=== PATIENT | female | born 1940 | race Caucasian/White ===

== ENCOUNTER 2017-05-06 08:05 | Inpatient (IN) | payer MEDICARE ==
[~2017-05-06] VITALS: Ht 160 cm; Wt 75.9 kg
[2017-05-06] VITALS (7 sets, daily range): BP systolic 125–182; BP diastolic 64–100
--- NOTE | ~2017-05-06 | CON ---
[place], [place] REPORT OF CONSULTATION [id number] UN[facility] #: [id number] ROOM: 406 DOCTOR: JOAQUIN SOTO MD BIRTHDATE: [birth year] DOS: 05/07/2017 REASON FOR CONSULTATION: Chest discomfort. HISTORY OF PRESENT ILLNESS: The patient is a 76-year-old woman who has risk factors of cigarette abuse and a family history of coronary artery disease in two siblings and her father. She has no personal history of coronary artery disease. She was well until 05/06/2017. She awakened with a feeling of pressure in her chest and a feeling of lightheadedness like she could pass out. This started at about 3:30 in the morning. She sat up, but felt weak and therefore laid back down and fell asleep. When she awakened, the symptoms were still there. She also noticed sweating and some palpitations. She called her niece who summoned emergency medical services. When they arrived, her vital signs were stable. She was transferred to the Emergency Room where she was admitted for further assessment. The patient complained of having headaches for the last 4 days. She has risk factors of hypertension, hyperlipidemia and cigarette abuse in addition to her family. PAST MEDICAL HISTORY: Includes: 1. Cigarette abuse with obstructive lung disease. 2. Hyperlipidemia. 3. Hyperthyroidism, status post radioactive iodine thyroid ablation. 4. Iatrogenic hypothyroidism, on thyroid replacement. 5. Hypertension. 6. Status post hysterectomy, left breast biopsy and left lower leg open reduction and internal fixation for leg fracture. MEDICATIONS: Prior to admission, alprazolam 0.25 mg at bedtime, amlodipine 10 mg daily, aspirin 81 mg daily, biotin 1000 mcg daily, cinnamon 500 mg daily, enalapril 20 mg daily, garlic 300 mg daily, hydrochlorothiazide 12.5 mg every other day, levothyroxine 75 mcg daily, Belviq 10 mg b.i.d., metoprolol 25 mg at bedtime, metoprolol succinate 25 mg at bedtime, omeprazole 20 mg daily with omega 3 fatty acid 500 mg daily, simvastatin 20 mg at bedtime, vitamin B complex daily and an [id number] biological Tumersaid 1 daily. ALLERGIES: The patient lists allergies to PUMPKIN, SULFAMETHOXAZOLE and TRIMETHOPRIM. FAMILY HISTORY: The patient's mother had a pacemaker inserted the patient's father and two brothers had coronary artery disease. REVIEW OF SYSTEMS: The patient denies diplopia or loss of vision. She denies lightheadedness or syncope. She denies fevers, chills, sweats or recent weight change. Denies orthopnea or PND. She denies cough. She does have dyspnea with exertion, but continues to dance and be active. She denies nausea or vomiting. She denies hemoptysis or hematemesis. She denies change in bowel or bladder habits. She denies blood from her stools or urine. She denies any ankle swelling. She does have pain in her left ankle from her previous surgery. She [place], [place] REPORT OF CONSULTATION NAME: LUTHER LOZOYA UNIT #: [id number] ROOM: [facility] DOCTOR: JOAQUIN SOTO MD BIRTHDATE: [birth year] denies any peripheral edema. She denies any polydipsia or polyuria. Denies heat or cold intolerance. The remainder of the review of systems is negative except as noted above. SOCIAL HISTORY: The patient is . She smokes about 1/4 of pack of cigarettes a day. She does not consume excessive amounts of alcohol. PHYSICAL EXAMINATION: GENERAL: The patient is a slender white female who is awake, alert, oriented. VITAL SIGNS: Pulse is 56 and regular, blood pressure is 148/86. She weighs 75.8 kg and has a body mass index 29.6. HEENT: Normocephalic, atraumatic. Extraocular muscles are intact. Sclerae are clear. Pupils are round and reactive to light. The oral mucosa is moist. Tongue is midline. NECK: Supple. She has no jugular distention. Carotids are full. I heard no bruits. She had no neck or supraclavicular masses. No thyromegaly. LUNGS: Respirations are unlabored. Her chest was clear to auscultation and percussion. She had no presacral edema or chest wall tenderness. She had no epigastric tenderness. I could not reproduce her pain by palpation of her chest or abdomen. HEART: Regular rhythm with a soft S4 gallop, but no S3 or murmur. The PMI is not displaced. There is no precordial heave, lift or thrill. ABDOMEN: Soft and normoactive without masses, organomegaly or bruits. EXTREMITIES: No clubbing, cyanosis or edema. Peripheral pulses are easily palpated bilaterally. LABORATORY DATA: I reviewed her electrocardiogram, which showed sinus rhythm with probable left ventricular hypertrophy and an occasional PVC, but no acute changes. IMPRESSION: 1. Atypical chest discomfort. Thus far, the patient shows no signs of myocardial injury. 2. History of hypertension. 3. Long-term and ongoing cigarette abuse. 4. Hyperlipidemia. 5. Iatrogenic hypothyroidism, on replacement. PLAN: The patient's symptoms are very atypical, but may be related to coronary artery disease. In order to evaluate her further, we will proceed with a pharmacologic stress test. Further recommendations depend upon the results of the test. In the meantime, she should continue risk factor modification certainly should stop smoking. [facility] [place] [facility] and I thank the hospitalist group for asking our advice regarding her care. [place], [place] REPORT OF CONSULTATION NAME: LUTHER LOZOYA UNIT #: [id number] ROOM: 406 DOCTOR: JOAQUIN SOTO MD BIRTHDATE: [birth year] JOAQUIN SOTO MD CM:CONSTR:REPORT OF CONSULTATION 1015 05/07/17 1149 interface
[~2017-05-06 08:05] MED LIST: ANAPROX DS550 MG PO; ASPIRIN81 M1 PO; CINNAMON500 MG PO; CLARITIN10 MG PO; COCONUT OIL 1 ML1 ML PO; CORAL CALCIUM185 MG PO; ELON MATRIX PO; FISH OIL500 MG PO; GARLIC300 MG PO; HYDR12.5C PO; LEVOFLOXACIN500 MG PO; LOTREL 10 MG-201 CAP PO; NORCO 5-325 TA1 EACH PO; PRILOSEC20 MG PO; PRIMROSE OIL1 SGL PO; PROVENTIL0.09 MG/AC IH; ROBITUSSIN AC 110 ML PO; SIMVASTATIN20 MG PO; SYNTHROID0.075 MG PO; TOPROL XL25 MG PO; VITAMIN B COMPL1 CAP PO; VITAMIN C100 M1 PO; XANAX0.25 MG PO; ZITHROMAX Z PA250 MG PO; ZOFRAN4 MG PO
[2017-05-06 08:23] LABS: BASO % 0.5 % (0.0-1.0); EOS # 0.1 10*3/uL (0.0-0.4); HEMOGLOBIN 13.7 g/dl (12.0-16.0); LYMPH # 1.3 10*3/uL (1.3-4.4); LYMPH % 29.5 % (27.0-41.0); MEAN CELL VOLUME 89.7 fl (81.0-99.0); MEAN CORPUSCULAR HGB CONC 33.4 g/dl (33.0-37.0); MEAN PLATELET VOLUME 10.4 fl (9.6-12.3); MONO # 0.3 10*3/uL (0.1-1.0); MONO % 7.5 % (3.0-9.0); NEUT # 2.7 10*3/uL (2.3-7.9); NEUT % 60.3 % (47.0-73.0); PLATELET COUNT AUTOMATED 183 10*3/uL (130-400); RED BLOOD COUNT 4.57 10*6/uL (4.10-5.10); RED CELL DISTRI WIDTH 14.3 % (0-14.5); WHITE BLOOD COUNT 4.4 10*3/uL (4.8-10.8)
[2017-05-06 08:33] LABS: PROTHROMBIN TIME 10.3 SECONDS (9.0-12.4)
[2017-05-06 08:39] LABS: ALBUMIN 3.8 gm/dl (3.1-4.5); ALKALINE PHOSPHATASE 81 U/L (45-117); BILIRUBIN, TOTAL 0.5 mg/dl (0.2-1.0); BUN 20 mg/dl (7-24); C-REACTIVE PROTEIN < 0.29 MG/DL (0-0.3); CARBON DIOXIDE 28 mmol/L (21-32); CHLORIDE 108 mmol/L (98-107); CKMB 0.9 ng/ml (0.5-3.6); CPK 66 U/L (26-192); EST GLOM FILT AFRICAN AMERICAN > 60 ml/min; GLUCOSE 100 mg/dL (65-99); MAGNESIUM 2.3 mg/dL (1.5-2.1); POTASSIUM 3.4 mmol/L (3.5-5.1); SGOT/AST 16 IU/L (3-35); SGPT/ALT 18 U/L (12-78); SODIUM 142 mmol/L (136-145); TOTAL PROTEIN 7.7 gm/dL (6.4-8.2); TROPONIN I < 0.015 ng/ml (<0.045)
[2017-05-06] MEDS ORDERED: NATURE'S BLE1000 MCG PO (10:06)
[2017-05-06] MEDS ORDERED: BELVIQ10 M1 PO (10:07)
[2017-05-06] MEDS ORDERED: NORVASC10 MG PO (10:08)
[2017-05-06] MEDS ORDERED: ENALAPRIL20 MG PO (10:10)
[2017-05-06] MEDS ORDERED: TUMERSAID TABL1 EACH PO (10:11)
[2017-05-07] VITALS: BP 142/84
[2017-05-07 07:03] LABS: BASO % 0.4 % (0.0-1.0); EOS # 0.1 10*3/uL (0.0-0.4); EOS % 2.7 % (1.0-4.0); HEMOGLOBIN 12.2 g/dl (12.0-16.0); LYMPH # 1.5 10*3/uL (1.3-4.4); LYMPH % 31.7 % (27.0-41.0); MEAN CELL VOLUME 90.9 fl (81.0-99.0); MEAN PLATELET VOLUME 9.5 fl (9.6-12.3); MONO # 0.4 10*3/uL (0.1-1.0); NEUT # 2.7 10*3/uL (2.3-7.9); PLATELET COUNT AUTOMATED 169 10*3/uL (130-400); RED BLOOD COUNT 4.07 10*6/uL (4.10-5.10); RED CELL DISTRI WIDTH 14.3 % (0-14.5); WHITE BLOOD COUNT 4.8 10*3/uL (4.8-10.8)
[2017-05-07 07:29] LABS: ALBUMIN 3.4 gm/dl (3.1-4.5); BILIRUBIN, TOTAL 0.4 mg/dl (0.2-1.0); BUN 13 mg/dl (7-24); CARBON DIOXIDE 25 mmol/L (21-32); CHLORIDE 107 mmol/L (98-107); CHOLESTEROL 133 mg/dL (<200); EST GLOM FILT AFRICAN AMERICAN > 60 ml/min; GLUCOSE 92 mg/dL (65-99); POTASSIUM 3.3 mmol/L (3.5-5.1); SGOT/AST 15 IU/L (3-35); SGPT/ALT 17 U/L (12-78); SODIUM 142 mmol/L (136-145); TOTAL PROTEIN 6.9 gm/dL (6.4-8.2); TRIGLYCERIDES 132 mg/dl (<150); VLDL CHOLESTEROL 26 mg/dL (6-40)
[2017-05-07 07:38] LABS: ALKALINE PHOSPHATASE 73 U/L (45-117); HDL CHOLESTEROL 43 mg/dl (40-60); LDL CHOLESTEROL 64 mg/dL (9-159)
[2017-05-07 07:42] LABS: HEMOGLOBIN A1c 5.3 % (4.8-5.6)
[2017-05-07 08:00] VITALS: BP 148/86
[2017-05-07 08:07] LABS: FOLIC ACID 20.98 ng/mL (>5.38); VITAMIN D, 25-HYDROXY 34.4 ng/mL (30-100)
[2017-05-07 12:00] VITALS: BP 173/93
== END 2017-05-07 15:55 | disposition home or self-care (01) | DRG 205 ==
LOC: ED 08:05 → 4E 09:20 → EDHOLD 09:20 → 4E 09:30
PROVIDERS: Emergency Medicine; Family Medicine Adult Medicine
PROC: 3E073KZ Introduction of Other Diagnostic Substance into Coronary Artery, Percutaneous Approach (ICD-10-PCS; principal; 2017-05-07)
PROC: 4A02XM4 Measurement of Cardiac Total Activity, External Approach (ICD-10-PCS; principal; 2017-05-07)
DX: M94.0 Chondrocostal junction syndrome [Tietze] (principal); J18.9 Pneumonia, unspecified organism; K21.9 Gastro-esophageal reflux disease without esophagitis; E78.00 Pure hypercholesterolemia, unspecified; I10 Essential (primary) hypertension; F41.9 Anxiety disorder, unspecified; R42 Dizziness and giddiness; E78.5 Hyperlipidemia, unspecified; J44.9 Chronic obstructive pulmonary disease, unspecified; E89.0 Postprocedural hypothyroidism; F17.210 Nicotine dependence, cigarettes, uncomplicated; Z86.73 Personal history of transient ischemic attack (TIA), and cerebral infarction without residual deficits; Z90.710 Acquired absence of both cervix and uterus; Z88.2 Allergy status to sulfonamides; Z88.1 Allergy status to other antibiotic agents; Z91.018 Allergy to other foods; Z82.49 Family history of ischemic heart disease and other diseases of the circulatory system; Z79.82 Long term (current) use of aspirin; Z79.899 Other long term (current) drug therapy

== ENCOUNTER 2021-10-12 09:13 | Emergency (ER) | payer MEDICARE ==
[~2021-10-12] VITALS: Wt 76.7 kg
[~2021-10-12 09:13] MED LIST changes: +BELVIQ10 M1 PO; +ENALAPRIL20 MG PO; +NATURE'S BLE1000 MCG PO; +NORVASC10 MG PO; +TUMERSAID TABL1 EACH PO
[2021-10-12 09:46] LABS: BASO % 0.5 % (0.0-1.0); EOS # 0.2 10*3/uL (0.0-0.4); EOS % 2.9 % (1.0-4.0); HEMATOCRIT 39.1 % (37.0-47.0); LYMPH # 1.2 10*3/uL (1.3-4.4); LYMPH % 21.6 % (27.0-41.0); MEAN CELL VOLUME 93.3 fl (81.0-99.0); MEAN CORPUSCULAR HGB 29.4 pg (27.0-31.0); MEAN CORPUSCULAR HGB CONC 31.5 g/dl (33.0-37.0); MEAN PLATELET VOLUME 10.5 fl (9.6-12.3); MONO # 0.4 10*3/uL (0.1-1.0); MONO % 6.6 % (3.0-9.0); NEUT # 3.8 10*3/uL (2.3-7.9); NEUT % 67.7 % (47.0-73.0); PLATELET COUNT AUTOMATED 202 10*3/uL (130-400); RED BLOOD COUNT 4.19 10*6/uL (4.10-5.10); WHITE BLOOD COUNT 5.6 10*3/uL (4.8-10.8)
[2021-10-12 10:01] LABS: ACT PARTIAL THROMBO TIME 29.3 SECONDS (20.0-32.1); ALBUMIN 3.5 gm/dl (3.1-4.5); ALKALINE PHOSPHATASE 88 U/L (45-117); BUN 24 mg/dl (7-24); CHLORIDE 109 mmol/L (98-107); CREATININE 1.06 mg/dL (0.55-1.02); LIPASE 241 U/L (73-393); POTASSIUM 3.1 mmol/L (3.5-5.1); SGOT/AST 18 IU/L (3-35); SGPT/ALT 18 U/L (12-78); SODIUM 142 mmol/L (136-145); TOTAL PROTEIN 7.2 gm/dL (6.4-8.2)
== END 2021-10-12 12:01 | disposition home or self-care (01) ==
LOC: ED 09:13
PROVIDERS: Emergency Medicine
DX: E87.6 Hypokalemia (principal); M79.602 Pain in left arm; J44.9 Chronic obstructive pulmonary disease, unspecified; E03.9 Hypothyroidism, unspecified; I10 Essential (primary) hypertension; Z88.1 Allergy status to other antibiotic agents; Z79.899 Other long term (current) drug therapy; Z79.82 Long term (current) use of aspirin; Z87.891 Personal history of nicotine dependence

== ENCOUNTER → 2022-03-20 | Outpatient (CLI) | payer MEDICARE | END | disposition home or self-care (01) | LOC: RAD 12:09 | PROVIDERS: ATTEND Internal Medicine | DX: M11.262 Other chondrocalcinosis, left knee (principal); G89.29 Other chronic pain ==

== ENCOUNTER 2023-01-06 09:14 | Emergency (ER) | payer MEDICARE ==
[~2023-01-06] VITALS: Ht 157.4 cm; Wt 78.5 kg
[2023-01-06] MEDS ORDERED: VIBRA-TAB100 MG PO (09:41)
== END 2023-01-06 19:30 ==
LOC: ED 09:14
DX: H00.034 Abscess of left upper eyelid (principal); I10 Essential (primary) hypertension; E78.00 Pure hypercholesterolemia, unspecified; Z91.018 Allergy to other foods; Z88.2 Allergy status to sulfonamides; Z88.8 Allergy status to other drugs, medicaments and biological substances; Z90.710 Acquired absence of both cervix and uterus; Z98.890 Other specified postprocedural states; Z87.891 Personal history of nicotine dependence

== ENCOUNTER 2023-10-10 08:47 | Emergency (ER) | payer MEDICARE ==
[~2023-10-10] VITALS: Ht 157.4 cm; Wt 68.9 kg
[~2023-10-10 08:47] MED LIST changes: +VIBRA-TAB100 MG PO
[2023-10-10] MEDS ORDERED: HYDROCODONE-AC1 EAC1 PO (12:15)
== END 2023-10-10 12:57 | disposition home or self-care (01) ==
LOC: ED 08:47
DX: S42.292A Other displaced fracture of upper end of left humerus, initial encounter for closed fracture (principal); F17.200 Nicotine dependence, unspecified, uncomplicated; Z91.018 Allergy to other foods; Z88.2 Allergy status to sulfonamides; Z79.2 Long term (current) use of antibiotics; Z79.899 Other long term (current) drug therapy; Z79.82 Long term (current) use of aspirin; Z98.890 Other specified postprocedural states; Z90.711 Acquired absence of uterus with remaining cervical stump; W01.0XXA Fall on same level from slipping, tripping and stumbling without subsequent striking against object, initial encounter; Y93.89 Activity, other specified; Y92.89 Other specified places as the place of occurrence of the external cause; Y99.8 Other external cause status

== ENCOUNTER 2024-11-19 09:20 | Emergency (ER) | payer MEDICARE ==
[~2024-11-19] VITALS: Wt 74.8 kg
[~2024-11-19 09:20] MED LIST changes: +HYDROCODONE-AC1 EAC1 PO
[2024-11-19] MEDS ORDERED: SODIUM CHLORIDE 0.9% 1,000 ML IV ONE (09:40)
[2024-11-19 10:03] LABS: BASO % 0.8 % (0.0-1.0); EOS # 0.1 10*3/uL (0.0-0.4); EOS % 2.9 % (1.0-4.0); HEMATOCRIT 36.3 % (37.0-47.0); MEAN CELL VOLUME 92.8 fl (81.0-99.0); MEAN CORPUSCULAR HGB 28.9 pg (27.0-31.0); MEAN CORPUSCULAR HGB CONC 31.1 g/dl (33.0-37.0); MEAN PLATELET VOLUME 9.8 fl (9.6-12.3); MONO # 0.2 10*3/uL (0.1-1.0); MONO % 6.3 % (3.0-9.0); NEUT # 2.5 10*3/uL (2.3-7.9); NEUT % 64.3 % (47.0-73.0); PLATELET COUNT AUTOMATED 189 10*3/uL (130-400); RED BLOOD COUNT 3.91 10*6/uL (4.10-5.10); RED CELL DISTRI WIDTH 13.8 % (0-14.5); WHITE BLOOD COUNT 3.8 10*3/uL (4.8-10.8)
[2024-11-19 10:27] LABS: POTASSIUM 3.8 mmol/L (3.4-5.1)
== END 2024-11-19 11:33 | disposition home or self-care (01) ==
LOC: ED 09:20
PROVIDERS: Emergency Medicine
DX: M79.602 Pain in left arm (principal); R00.2 Palpitations; I10 Essential (primary) hypertension; J44.9 Chronic obstructive pulmonary disease, unspecified; E78.5 Hyperlipidemia, unspecified; E78.00 Pure hypercholesterolemia, unspecified; Z88.8 Allergy status to other drugs, medicaments and biological substances; Z88.2 Allergy status to sulfonamides; Z91.018 Allergy to other foods; Z90.710 Acquired absence of both cervix and uterus; Z98.890 Other specified postprocedural states